=== PATIENT | female | born 1995 ===

== ENCOUNTER 2021-03-22 18:24 | Emergency (ER) | payer SELFPAY ==
[2021-03-22] MEDS ORDERED: Sodium Chloride 0.9% 10 ML Syringe FLUSH PRN (20:09)
[2021-03-22] MEDS ORDERED: Sodium Chloride 0.9% 2.5 ML Syringe FLUSH PRN (20:09)
[2021-03-22] MEDS ORDERED: Sodium Chloride 0.9% 1,000 ML IV ONE (20:14)
[2021-03-22] MEDS ORDERED: Pantoprazole 80 MG in Sodium Chloride 0.9% 20 ML IVPUSH ONE (20:14)
[2021-03-22] MEDS ORDERED: Alum Hydrox/Mag Hydrox/Simeth 15 ML, Metoclopramide 5 MG, Lidocaine 2% 5 ML PO ONE ×3 (20:15)
[2021-03-22] MEDS ORDERED: Morphine 2 MG/ML SYRINGE IVPUSH ONE (20:15)
[2021-03-22] MEDS ORDERED: Pantoprazole 40 MG Vial ONE (20:46)
[2021-03-22 21:08] LABS: ACETAMINOPHEN <2.0 ug/mL; BLOOD UREA NITROGEN,BUN 5 mg/dL (7.0-18.0); CARBON DIOXIDE,CO2 26.4 mmol/L (21.0-32.0); CHLORIDE,CL 99 mmol/L (98-107); GLUCOSE RANDOM 109 mg/dL (74-106); LIPASE 45 U/L (73-393); POTASSIUM,K 3.9 mmol/L (3.5-5.1); SODIUM,NA 137 mmol/L (136-145)
[2021-03-22] MEDS ORDERED: Iopamidol 755 MG/ML 500 ML Multipack Bottle IVPUSH STA (21:46)
[2021-03-22] MEDS ORDERED: Aluminum Hydroxide/Magnesium Hydroxide/Simethicone XS Susp 30 ML Cup ONE (21:48)
[2021-03-22] MEDS ORDERED: Metoclopramide Oral Soln 10 MG/10 ML UD Cup ONE (21:48)
[2021-03-22] MEDS ORDERED: Lidocaine 2% Viscous Solution 15 ML Cup ONE (21:49)
--- NOTE | 2021-03-22 21:50 | EDM.PDOC ---
ED HPI GENERAL MEDICAL PROBLEM - General Chief Complaint: Abdominal Pain Stated Complaint: TOOK TOO MUCH IBPROFEN Time Seen by Provider: 03/22/21 19:30 Source of Information: Reports: Patient History Limitations: Reports: No Limitations - History of Present Illness INITIAL COMMENTS - FREE TEXT/NARRATIVE: HISTORY AND PHYSICAL: History of present illness: Patient is a 25-year-old female who presents emergency room today with concern that she may have taken too much naproxen sodium. Patient states that she has been having wisdom tooth pain as her bottom left wisdom tooth is growing into the adjacent tooth and is growing in the wrong direction. Patient states that she is supposed to have her wisdom teeth out, but has anxiety so has been missing her appointments to get this removed. Patient states that she bought a bottle of naproxen sodium 220 mg on Saturday and since then has completed the entire bottle. Patient states that she is taking approximately 5 tabs every 3-4 hours and since Saturday, has taken a total of 100 capsules. Patient states that today, she began having epigastric abdominal pain and mid back pain so came to the emergency room for further evaluation. Patient states that she has had a tubal ligation so is not . Denies any other symptoms or concerns. Patient denies fever, chills, chest pain, shortness of breath, or cough. Denies headache, neck stiff ness, change in vision, syncope, or near syncope. Denies nausea, vomiting, diarrhea, constipation, or dysuria. Has not noted any blood in urine or stool. Patient has been eating and drinking appropriately. Review of systems: As per history of present illness and below otherwise all systems reviewed and negative. Past medical history: As per history of present illness and as reviewed below otherwise noncontributory. Surgical history: As per history of present illness and as reviewed below otherwise noncontributory. Social history: See social history for further information Family history: As per history of present illness and as reviewed below otherwise noncontributory. Physical exam: General: Patient is alert, oriented, and in no acute distress. Patient laying on exam table, holding periumbilical abdomen, appearing mildly-moderately uncomfortable. Patient is tachycardic 120s on exam. Otherwise, vitally stable and reviewed by me. HEENT: Atraumatic, normocephalic, pupils equal and reactive bilaterally, negative for conjunctival pallor or scleral icterus, mucous membranes moist, TMs normal bilaterally, throat clear, neck supple, nontender, trachea midline. No drooling or trismus noted. No meningeal signs. No hot potato voice noted. Lungs: Clear to auscultation, breath sounds equal bilaterally, chest nontender. Heart: S1S2, regular rate and rhythm without overt murmur Abdomen: Soft, nondistended, moderate celestino umbilical tenderness with guarding. Negative for masses or hepatosplenomegaly. Negative for costovertebral tenderness. Pelvis: Stable nontender. Genitourinary: Deferred. Rectal: Deferred. Skin: Intact, warm, dry. No lesions or rashes noted. Extremities: Atraumatic, negative for cords or calf pain. Neurovascular unremarkable. Neuro: Awake, alert, oriented. Cranial nerves II through XII unremarkable. Cerebellum unremarkable. Motor and sensory unremarkable throughout. Exam nonfocal. Notes: Patient is a 25-year-old female who presents emergency room today with concern of dental pain with now concern of taking too much naproxen sodium for pain control. Patient has taken a total of 100 capsules since Saturday 03/17 with her last capsule being earlier today. Upon arrival to the ED, patient is tachycardic 120s on exam and is mildly moderately uncomfortable holding her periumbilical abdomen. Patient does have moderate pain to palpation of her periumbilical abdomen on exam with guarding negative rebound negative Cerda sign. I did call and contact poison control directly after my discussion with patient who states that at this time, naproxen overdose is symptom management and recommends checking kidney function, salicylate, and acetaminophen. They do not have any further recommendations at this time. CBC does show mild anemia with red blood cells of 3.71, hemoglobin 11.7, and hematocrit of 35.3, otherwise mild derangements of CBC unremarkable. Mild derangements unremarkable. BUN and creatinine are within normal limits. hCG is negative. Lipase is within normal limits. Urinalysis does show trace leukocyte Estrace with 3-6 white blood cells and 3+ bacteria. Indicating possible urinary tract infection. Salicylate is 1.4 and acetaminophen less than 2. Abdominal pelvic CT scan of the abdomen shows right pyelonephritis with possible mild left pyelonephritis. No sign of any renal abscess. Normal CT of the pel vis with contrast. Normal appearance of the appendix. I did retouch base with poison control who states that at this time, given patient's lab work, no further testing needed at this time. Upon reevaluation of patient, she has improvement of her tachycardia to approximately 105 on reevaluation. Patient will be provided dose of 1 g IV Rocephin here and sent home on cefdinir. Strict return precautions thoroughly discussed with patient. Discussed importance for follow-up with a primary care provider. Voices understanding and is agreeable to plan of care. Denies any further questions or concerns at this time. Diagnostics: CBC, CMP, UA, Serum hcg, Lipase, Abd/Pelvic ct w cont, salicylate, acetaminophen Therapeutics: NS, Morphine, Protonix, GI cocktail, Rocephin Prescription: Cefdinir Impression: Acute pyelonephritis Plan: 1. Take medication as prescribed. You can use Tylenol as directed for pain and discomfort. Otherwise take NORCO as prescribed. Caution as this medication does cause drowsiness and sedation so caution with taking this medication outside of the house and do not drive or operate heavy equipment. Hold off on NSAID medication for several days given inappropriate dosing of Naproxen as discussed. 2. Follow-up with a primary care provider as discussed. Return to the ED as needed and as discussed. Definitive disposition and diagnosis as appropriate pending reevaluation and review of above. Back Pain Score (Numeric/FACES): 5 - Related Data Allergies Allergy/AdvReac Type Severity Reaction Status Date / Time epinephrine [From EpiPen] Allergy Swelling Verified 04/06/15 19:49 venom-honey bee Allergy Swelling Verified 04/06/15 19:49 [bee venom (honey bee)] Home Meds: Home Meds Ibuprofen [Motrin] 600 mg PO Q6H PRN tablet 10/22/17 [Rx] Cefdinir 300 mg PO BID 14 Days #28 capsule 03/22/21 [Rx] Naloxone HCl [Narcan] 4 mg NS ONETIME PRN #1 applic 03/22/21 [Rx] Past Medical History HEENT History: Reports: None Cardiovascular History: Reports: None Respiratory History: Reports: Asthma Gastrointestinal History: Reports: None Genitourinary History: Reports: None Other Genitourinary History: "kidney infection" [employer] History: Reports: , Spontaneous Musculoskeletal History: Reports: None Neurological History: Reports: None Psychiatric History: Reports: None Endocrine/Metabolic History: Reports: None Hematologic History: Reports: None Immunologic History: Reports: None Oncologic (Cancer) History: Reports: None Dermatologic History: Reports: None - Infectious Disease History Infectious Disease History: Reports: Chicken Pox, Shingles - Past Surgical History Head Surgeries/Procedures: Reports: None HEENT Surgical History: Reports: None Cardiovascular Surgical History: Reports: None Respiratory Surgical History: Reports: None GI Surgical History: Reports: None Female Surgical History: Reports: Section Endocrine Surgical History: Reports: None Neurological Surgical History: Reports: None Musculoskeletal Surgical History: Reports: None Oncologic Surgical History: Reports: None Dermatological Surgical History: Reports: None Social & Family History - Family History Family Medical History: No Pertinent Family History - Tobacco Use Tobacco Use Status *Q: Light Tobacco User Years of Tobacco use: 6 Packs/Tins Daily: 0 - Caffeine Use Caffeine Use: Reports: None - Recreational Drug Use Recreational Drug Use: No ED ROS GENERAL - Review of Systems Review Of Systems: Comprehensive ROS is negative, except as noted in HPI. ED EXAM, GENERAL - Physical Exam Exam: See Below (see dictation) Course - Vital Signs Last Recorded V/S: Last Vital Signs Temp 97.8 F 03/22/21 19:32 Pulse 109 H 03/22/21 23:22 Resp 15 03/22/21 23:50 BP 125/84 03/22/21 23:50 Pulse Ox 100 03/22/21 23:50 - Orders/Labs/Meds Labs: Laboratory Tests 03/22/21 03/22/21 03/22/21 Range/Units 20:25 20:30 20:30 WBC 9.05 (4.0-11.0) K/uL RBC 3.71 L (4.30-5.90) M/uL Hgb 11.7 L (12.0-16.0) g/dL Hct 35.3 L (36.0-46.0) % MCV 95.1 (80.0-98.0) fL MCH 31.5 (27.0-32.0) pg MCHC 33.1 (31.0-37.0) g/dL RDW Std Deviation 43.5 (28.0-62.0) fl RDW Coeff of Saima 13 (11.0-15.0) % Plt Count 285 (150-400) K/uL MPV 9.80 (7.40-12.00) fL Neut % (Auto) 79.7 (48.0-80.0) % Lymph % (Auto) 12.5 L (16.0-40.0) % Wise % (Auto) 7.7 (0.0-15.0) % Eos % (Auto) 0.0 (0.0-7.0) % Baso % (Auto) 0.1 (0.0-1.5) % Neut # (Auto) 7.2 H (1.4-5.7) K/uL Lymph # (Auto) 1.1 (0.6-2.4) K/uL Wise # (Auto) 0.7 (0.0-0.8) K/uL Eos # (Auto) 0.0 (0.0-0.7) K/uL Baso # (Auto) 0.0 (0.0-0.1) K/uL Nucleated RBC % 0.0 /100WBC Nucleated RBCs # 0 K/uL Sodium 137 (136-145) mmol/L Potassium 3.9 (3.5-5.1) mmol/L Chloride 99 (98-107) mmol/L Carbon Dioxide 26.4 (21.0-32.0) mmol/L BUN 5 L (7.0-18.0) mg/dL Creatinine 0.7 (0.6-1.0) mg/dL Est Cr Clr Drug Dosing 99.86 mL/min Estimated GFR (MDRD) > 60.0 ml/min Glucose 109 H (74-106) mg/dL Calcium 9.2 (8.5-10.1) mg/dL Total Bilirubin 0.5 (0.2-1.0) mg/dL AST 17 (15-37) IU/L ALT 24 (14-63) IU/L Alkaline Phosphatase 77 (46-116) U/L Total Protein 8.1 (6.4-8.2) g/dL Albumin 3.3 L (3.4-5.0) g/dL Globulin 4.8 H (2.6-4.0) g/dL Albumin/Globulin Ratio 0.7 L (0.9-1.6) Lipase 45 L (73-393) U/L HCG, Qual (NEG) Urine Color YELLOW Urine Appearance SLT CLOUDY Urine pH 6.5 (5.0-8.0) Ur Specific [place] 1.010 (1.001-1.035) Urine Protein NEGATIVE (NEGATIVE) mg/dL Urine Glucose (UA) NEGATIVE (NEGATIVE) mg/dL Urine Ketones NEGATIVE (NEGATIVE) mg/dL Urine Occult Blood TRACE-INTACT H (NEGATIVE) Urine Nitrite NEGATIVE (NEGATIVE) Urine Bilirubin NEGATIVE (NEGATIVE) Urine Urobilinogen 0.2 (<2.0) EU/dL Ur Leukocyte Esterase SMALL H (NEGATIVE) Urine RBC 0-2 (0-2/HPF) Urine WBC 3-6 (0-5/HPF) Ur Epithelial Cells RARE (NONE-FEW) Urine Bacteria 3+ H (NEGATIVE) Salicylates 1.4 (0-20) mg/dL Acetaminophen <2.0 ug/mL 03/22/21 Range/Units 20:30 WBC (4.0-11.0) K/uL RBC (4.30-5.90) M/uL Hgb (12.0-16.0) g/dL Hct (36.0-46.0) % MCV (80.0-98.0) fL MCH (27.0-32.0) pg MCHC (31.0-37.0) g/dL RDW Std Deviation (28.0-62.0) fl RDW Coeff of Saima (11.0-15.0) % Plt Count (150-400) K/uL MPV (7.40-12.00) fL Neut % (Auto) (48.0-80.0) % Lymph % (Auto) (16.0-40.0) % Wise % (Auto) (0.0-15.0) % Eos % (Auto) (0.0-7.0) % Baso % (Auto) (0.0-1.5) % Neut # (Auto) (1.4-5.7) K/uL Lymph # (Auto) (0.6-2.4) K/uL Wise # (Auto) (0.0-0.8) K/uL Eos # (Auto) (0.0-0.7) K/uL Baso # (Auto) (0.0-0.1) K/uL Nucleated RBC % /100WBC Nucleated RBCs # K/uL Sodium (136-145) mmol/L Potassium (3.5-5.1) mmol/L Chloride (98-107) mmol/L Carbon Dioxide (21.0-32.0) mmol/L BUN (7.0-18.0) mg/dL Creatinine (0.6-1.0) mg/dL Est Cr Clr Drug Dosing mL/min Estimated GFR (MDRD) ml/min Glucose (74-106) mg/dL Calcium (8.5-10.1) mg/dL Total Bilirubin (0.2-1.0) mg/dL AST (15-37) IU/L ALT (14-63) IU/L Alkaline Phosphatase (46-116) U/L Total Protein (6.4-8.2) g/dL Albumin (3.4-5.0) g/dL Globulin (2.6-4.0) g/dL Albumin/Globulin Ratio (0.9-1.6) Lipase (73-393) U/L HCG, Qual NEGATIVE (NEG) Urine Color Urine Appearance Urine pH (5.0-8.0) Ur Specific [place] (1.001-1.035) Urine Protein (NEGATIVE) mg/dL Urine Glucose (UA) (NEGATIVE) mg/dL Urine Ketones (NEGATIVE) mg/dL Urine Occult Blood (NEGATIVE) Urine Nitrite (NEGATIVE) Urine Bilirubin (NEGATIVE) Urine Urobilinogen (<2.0) EU/dL Ur Leukocyte Esterase (NEGATIVE) Urine RBC (0-2/HPF) Urine WBC (0-5/HPF) Ur Epithelial Cells (NONE-FEW) Urine Bacteria (NEGATIVE) Salicylates (0-20) mg/dL Acetaminophen ug/mL Meds: Medications Discontinued Medications Generic Name Dose Route Start Last Admin Trade Name Freq PRN Reason Stop Dose Admin Al Hydroxide/Mg Hydroxide 15 0 ml 03/22/21 20:15 03/22/21 21:56 ml/ Metoclopramide HCl 5 mg/ PO 03/22/21 20:16 5 each Lidocaine HCl 5 ml ONETIME ONE Administration Sodium Chloride 1,000 mls @ 999 mls/hr 03/22/21 20:14 03/22/21 20:55 Normal Saline IV 03/22/21 21:14 999 mls/hr STAT ONE Administration Pantoprazole Sodium 80 mg/ 20 mls @ 420 mls/hr 03/22/21 20:14 03/22/21 20:57 Sodium Chloride IVPUSH 03/22/21 20:16 420 mls/hr ONETIME ONE Administration Ceftriaxone Sodium/Dextrose 1 50 mls @ 100 mls/hr 03/22/21 23:04 03/22/21 23:19 gm/ Premix IV 03/22/21 23:33 100 mls/hr ONETIME ONE Administration Iopamidol 100 ml 03/22/21 21:46 03/22/21 21:47 Iopamidol 755 Mg/Ml 500 Ml Multipack Bottle IVPUSH 03/22/21 21:47 100 ml ONETIME STA Administration Lidocaine HCl Confirm 03/22/21 21:49 03/22/21 21:58 Lidocaine 2% Viscous Solution 15 Ml Cup Administered 03/22/21 21:50 Not Given Dose 15 ml .ROUTE .STK-MED ONE Metoclopramide HCl Confirm 03/22/21 21:48 03/22/21 21:58 Metoclopramide Oral Soln 10 Mg/10 Ml Ud Cup Administered 03/22/21 21:49 Not Given Dose 10 mg .ROUTE .STK-MED ONE Morphine Sulfate 2 mg 03/22/21 20:15 03/22/21 20:50 Morphine 2 Mg/Ml Syringe IVPUSH 03/22/21 20:16 2 mg ONETIME ONE Administration Pantoprazole Sodium Confirm 03/22/21 20:46 03/22/21 20:57 Pantoprazole 40 Mg Vial Administered 03/22/21 20:47 Not Given Dose 40 mg .ROUTE .STK-MED ONE Sodium Chloride 10 ml 03/22/21 20:09 Sodium Chloride 0.9% 10 Ml Syringe FLUSH ASDIRECTED PRN Keep Vein Open Sodium Chloride 2.5 ml 03/22/21 20:09 Sodium Chloride 0.9% 2.5 Ml Syringe FLUSH ASDIRECTED PRN Keep Vein Open Departure - Departure Time of Disposition: 23:07 Disposition: Home, Self-Care 01 Clinical Impression: Acute pyelonephritis - Discharge Information Prescriptions: Cefdinir 300 mg PO BID 14 Days #28 capsule Naloxone HCl [Narcan] 4 mg NS ONETIME PRN #1 applic PRN Reason: Sedation Instructions: Pyelonephritis, Adult Referrals: PCP,None [Primary Care Provider] - Forms: ED Department Discharge Additional Instructions: The following information is given to patients seen in the emergency department who are being discharged to home. This information is to outline your options for follow-up care. We provide all patients seen in our emergency department with a follow-up referral. The need for follow-up, as well as the timing and circumstances, are variable depending upon the specifics of your emergency department visit. If you don't have a primary care physician on staff, we will provide you with a referral. We always advise you to contact your personal physician following an emergency department visit to inform them of the circumstance of the visit and for follow-up with them and/or the need for any referrals to a consulting specialist. The emergency department will also refer you to a specialist when appropriate. This referral assures that you have the opportunity for follow-up care with a specialist. All of these measure are taken in an effort to provide you with optimal care, which includes your follow-up. Under all circumstances we always encourage you to contact your private physician who remains a resource for coordinating your care. When calling for follow-up care, please make the office aware that this follow-up is from your recent emergency room visit. If for any reason you are refused follow-up, please contact the [facility] Emergency Department at and asked to speak to the emergency department charge nurse. [facility] [address] [place] [id number] [id number] 1. Take medication as prescribed. You can use Tylenol as directed for pain and discomfort. Otherwise take NORCO as prescribed. Caution as this medication does cause drowsiness and sedation so caution with taking this medication outside of the house and do not drive or operate heavy equipment. Hold off on NSAID medication for several days given inappropriate dosing of Naproxen as discussed. 2. Follow-up with a primary care provider as discussed. Return to the ED as needed and as discussed. Sepsis Event Note (ED) - Evaluation Sepsis Screening Result: No Definite Risk
--- NOTE | 2021-03-22 22:56 | CT ---
INDICATION: Lower abdominal pain. COMPARISON: None available TECHNIQUE: CT examination of the abdomen and pelvis was performed with the uneventful intravenous administration of 100 cc of Isovue 370 while 3 mm thick axial sections were obtained from the lung bases through the pubic symphysis. Oral contrast was not administered. Please note that all CT scans at this facility use dose modulation, iterative reconstruction, and/or weight-based dosing when appropriate to reduce radiation dose to as low as reasonably achievable. FINDINGS: In the abdomen, the liver, spleen, pancreas, and adrenals are normal in appearance. There is patchy decreased enhancement in the posterior interpolar right kidney as well as in the posterior-lateral upper pole of the right kidney, suggesting pyelonephritis with ounce renal abscess. There is subtle decreased enhancement in the upper pole of the left kidney which may represent additional pyelonephritis on the left. The gallbladder is normal in appearance. The abdominal aorta is normal in caliber with no sign of dilatation. There is no sign of retroperitoneal mass or adenopathy. The stomach, loops of small bowel, and colon in the abdomen are normal in appearance. In the pelvis, the appendix is normal in appearance with no sign of inflammatory process. The loops of small bowel and colon in the pelvis are normal in appearance. The uterus and adnexal regions are normal in appearance. The urinary bladder is normal in appearance. There is no sign of pelvic or inguinal mass or adenopathy. There is no sign of free air or free fluid in the abdomen or pelvis. The lung bases are clear. The osseous structures are normal in appearance for the patient`s age. IMPRESSION: CT of the abdomen shows right pyelonephritis with possible mild left pyelonephritis. No sign of any renal abscess. Normal CT of the pelvis with contrast. Normal appearance of the appendix. Please note that all CT scans at this facility use dose modulation, iterative reconstruction, and/or weight-based dosing when appropriate to reduce radiation dose to as low as reasonably achievable. Dictated by Sanjay Rodriguez MD @ 03/22/2021 10:54:42 PM (Electronically Signed)
[2021-03-22] MEDS ORDERED: cefTRIAXone 1 GM in Premix Bag 1 BAG IV ONE (23:04)
[2021-03-22 23:23] VITALS: PULSE 109
[2021-03-23 00:03] VITALS: BP 125/84
== END 2021-03-22 23:55 | disposition home or self-care (01) ==
LOC: MW.ED 18:24
DX: N10 Acute pyelonephritis (principal); Z88.1 Allergy status to other antibiotic agents; Z91.030 Bee allergy status; Z72.0 Tobacco use
CPT/HCPCS: 36415; 74177; 80053; 80143; 80179; 81001; 83690; 84703; 85025; 87086; 87088; 87186; 96365; 96375; 99284; A9270; C9113; J0696; J2270; J7030; Q9967